=== PATIENT | female | born 1975 | race Caucasian/White ===

== ENCOUNTER 2017-05-18 17:38 | Emergency (ER) | payer OTHER ==
[~2017-05-18] VITALS: Ht 170.2 cm; Wt 48.9 kg
[~2017-05-18 17:38] MED LIST: ELAVIL50 MG PO; ERYTHROMYC1 APPLICAT LEFT EYE; INDOCIN50 MG PO; LEXAPRO10 MG PO; MOTRIN600 MG PO; MOTRIN800 MG PO; Mylicon,Mylanta Gas, PO; NOHOMEMEDS; PERCOCET 5/31 TABLET PO; PREDNISONE10 M1 PO; PREDNISONE20 MG PO; TEARS NATURALE30 ML BOTH EYES; VALACYCLOVIR1000 MG PO; VALTREX1000 MG PO; Vicodin,Lortab 5/500 PO
[2017-05-18 17:39] VITALS: BP 128/75
[2017-05-18] MEDS ORDERED: ACULAR 0.5100 DROP/5 LEFT EYE (18:59)
[2017-05-18] MEDS ORDERED: NORCO 10/3251 TABLET PO (19:00)
[2017-05-18] MEDS ORDERED: MOTRIN800 MG PO (19:00)
== END 2017-05-18 19:38 | disposition home or self-care (01) ==
LOC: EME 17:38
DX: S05.02XA Injury of conjunctiva and corneal abrasion without foreign body, left eye, initial encounter (principal); X58.XXXA Exposure to other specified factors, initial encounter; Z97.3 Presence of spectacles and contact lenses; F17.200 Nicotine dependence, unspecified, uncomplicated
CPT/HCPCS: 99281; 99284